=== PATIENT | female | born 1985 | race African-American/Black ===

== ENCOUNTER 2021-03-31 13:52 | Emergency (ER) | payer OTHER ==
[~2021-03-31] VITALS: Ht 165.1 cm; Wt 67.0 kg
[2021-03-31 15:46] LABS: BASOPHILS % 0.5 % (0.0-2.0); EOSINOPHILS % 0.6 % (0.0-5.0); HEMATOCRIT. 37.2 % (36.0-48.0); LYMPHOCYTES % 18.5 % (20.0-50.0); MEAN CORPUSCULAR HEMOGLOBIN 27.5 pg (28.0-32.0); MEAN CORPUSCULAR VOLUME 85.3 fL (81.0-99.0); MEAN PLATELET VOLUME 10.4 fl (7.4-10.4); MONOCYTES % 7.6 % (2.0-8.0); NEUTROPHILS % 72.8 % (40.0-76.0); PLATELET 247 x1000/uL (130-400); RED BLOOD CELL COUNT 4.36 mill/uL (4.2-5.4); RED CELL DISTRIBUTION WIDTH 15.6 % (11.6-14.6)
[2021-03-31 15:53] LABS: CHLORIDE 101 mEq/L (98-107)
[2021-03-31 16:27] VITALS: BP 115/72
== END 2021-03-31 16:57 | disposition home or self-care (01) ==
LOC: ER 14:18
DX: R55 Syncope and collapse (principal); R42 Dizziness and giddiness
CPT/HCPCS: 36415; 80053; 83735; 85025; 93005; 99284

== ENCOUNTER 2023-07-25 13:03 | Emergency (ER) | payer OTHER ==
[~2023-07-25] VITALS: Ht 165.1 cm; Wt 55.0 kg
[2023-07-25 13:06] VITALS: O2SAT 100
[2023-07-25] MEDS ORDERED: NAP5EC MT (16:00)
[2023-07-25 16:27] VITALS: BP 102/89; PULSE 82; RESP 16; TEMP 98.4
== END 2023-07-25 16:45 | disposition home or self-care (01) ==
LOC: ER 13:03
DX: S09.90XA Unspecified injury of head, initial encounter (principal); M25.531 Pain in right wrist; M25.532 Pain in left wrist; M54.2 Cervicalgia; W18.39XA Other fall on same level, initial encounter; Y93.89 Activity, other specified; Y92.89 Other specified places as the place of occurrence of the external cause; Y99.8 Other external cause status
CPT/HCPCS: 73110; 81025; 99284